=== PATIENT | male | born 1975 | race Caucasian/White ===

== ENCOUNTER 2023-08-11 13:41 | Outpatient (CLI) | payer BC, SELFPAY | END 2023-08-11 13:42 | disposition home or self-care (01) | PROVIDERS: PCP Family Medicine; Visit Provider Registered Nurse | DX: R07.9 Chest pain, unspecified (principal) | CPT/HCPCS: 83690; 84484 ==

== ENCOUNTER 2024-03-15 13:21 | Outpatient (CLI) | payer BC, SELFPAY | END 2024-03-15 13:22 | disposition home or self-care (01) | PROVIDERS: PCP Family Medicine; Visit Provider Family Medicine | DX: L97.321 Non-pressure chronic ulcer of left ankle limited to breakdown of skin (principal); B95.61 Methicillin susceptible Staphylococcus aureus infection as the cause of diseases classified elsewhere | CPT/HCPCS: 82947; 83036; 87070; 87186 ==

== ENCOUNTER 2024-04-02 09:58 | Outpatient (CLI) | payer BC, SELFPAY | END 2024-04-02 09:59 | disposition home or self-care (01) | LOC: WOUND 09:58 | PROVIDERS: PCP Family Medicine; Visit Provider Nurse Practitioner Family | DX: L23.9 Allergic contact dermatitis, unspecified cause (principal); I83.12 Varicose veins of left lower extremity with inflammation | CPT/HCPCS: G0463 ==

== ENCOUNTER 2024-04-15 14:41 | Outpatient (CLI) | payer BC, SELFPAY | END 2024-04-15 14:42 | disposition home or self-care (01) | LOC: WOUND 14:41 | PROVIDERS: PCP Family Medicine; Visit Provider Family Medicine | DX: I83.12 Varicose veins of left lower extremity with inflammation (principal); L23.9 Allergic contact dermatitis, unspecified cause | CPT/HCPCS: G0463 ==

== ENCOUNTER 2024-07-14 09:02 | Outpatient (CLI) | payer BC, SELFPAY | END 2024-07-14 09:03 | disposition home or self-care (01) | PROVIDERS: PCP Internal Medicine; Visit Provider Nurse Practitioner Family | DX: L23.9 Allergic contact dermatitis, unspecified cause (principal); L40.8 Other psoriasis; I83.12 Varicose veins of left lower extremity with inflammation | CPT/HCPCS: G0463 ==

== ENCOUNTER 2024-07-21 09:54 | Outpatient (CLI) | payer OTHER, SELFPAY ==
--- NOTE | 2024-07-21 10:15 | CRLHL7_ITS ---
For Patients: As a result of the 21st Century Cures Act, medical imaging exams and procedure reports are released immediately into your electronic medical record. You may view this report before your referring provider. If you have questions, please contact your health care provider. CLINICAL INDICATION: Right shoulder pain. COMPARISON IMAGING STUDIES: Radiographs from 04/27/2024. TECHNICAL: Non-contrast MRI of the right shoulder. Axial, sagittal oblique and coronal oblique T1, PD, PD FS, T2 and T2 FS images. 1.5 Billie MR scanner. FINDINGS: GLENOHUMERAL JOINT: Effusion: There is mild synovitis within the subscapular recess. Only a small amount of joint fluid is present. Humeral Head Articular Cartilage: Maintained. Glenoid Articular Cartilage: Maintained. Alignment: Maintained. Capsule: No generalized capsular edema. OSSEOUS STRUCTURES: Small area of reactive bone marrow edema involves the greater tuberosity anteriorly. There is no acute fracture or avascular necrosis. CORACOACROMIAL ARCH: Acromial Morphology: Type 2 acromial morphology. There is anterior lateral downward sloping of the acromion. No os acromiale. Prominent spurring of the anterolateral acromion. Lateral acromial thickness is 7 mm. Acromiohumeral Interval: At its narrowest, the interval measures 5 mm. Mildly prominent coracoacromial ligament. Coracohumeral Interval: At its narrowest, the coracohumeral interval measures 8 mm. Coracoid index is 17 mm. ACROMIOCLAVICULAR JOINT REGION: AC joint degenerative arthrosis. Coracoclavicular ligament intact. BURSAE: Moderate subacromial-subdeltoid bursal fluid. ROTATOR CUFF TENDONS AND MUSCLES AND DELTOID: Supraspinatus and Infraspinatus: There is full-thickness tearing of the anterior distal supraspinatus tendon measuring approximately 12 millimeters anterior/posterior by 7 millimeters medial/lateral extent. Tear is well seen on coronal oblique T2 image number 11 of series 6. There is additional partial-thickness tendon tearing which extends both medial and posterior to the area of full-thickness tearing. Underlying supraspinatus tendinosis. No supraspinatus muscle atrophy. Mild distal infraspinatus tendinosis. No high-grade infraspinatus tendon tear or infraspinatus muscle atrophy. Teres Minor: Distal teres minor tendon is intact. Teres minor muscle mass maintained. Subscapularis: Distal subscapularis tendon intact. No muscle atrophy. Deltoid: No muscle atrophy or edema. BICEPS TENDON, LONG HEAD: Mild tendinosis of the proximal most long head of the biceps tendon. No subluxation or dislocation of tendon from bicipital groove. GLENOID LABRUM: Degenerative fraying of the superior labrum. OTHER FINDINGS: There is no abnormality within the suprascapular or spinoglenoid notches nor within the quadrilateral space. No axillary adenopathy or mass. IMPRESSION: 1. Approximately 12 mm area of full-thickness supraspinatus tendon tearing anteriorly. Additional partial-thickness tendon tearing is present adjacent to the full-thickness tear. Underlying tendinosis. No muscle atrophy. 2. Mild infraspinatus tendinosis. No high-grade infraspinatus tendon tear. 3. Anterior lateral downward sloping of the acromion. Prominent subacromial spur. Narrowed acromiohumeral interval. 4. Moderate subacromial-subdeltoid bursal fluid. 5. AC joint degenerative arthrosis. 6. Degenerative fraying of the superior labrum with adjacent tendinosis of the proximal most long head of the biceps tendon. Dictated by Mark Reid MD @ 07/21/2024 1:28:19 PM (Electronically Signed)
== END 2024-07-21 09:55 | disposition home or self-care (01) ==
LOC: MRI 09:54
PROVIDERS: PCP Internal Medicine; Visit Provider Internal Medicine
DX: M25.511 Pain in right shoulder (principal); M75.101 Unspecified rotator cuff tear or rupture of right shoulder, not specified as traumatic; M75.51 Bursitis of right shoulder; M19.011 Primary osteoarthritis, right shoulder; S49.90XA Unspecified injury of shoulder and upper arm, unspecified arm, initial encounter
CPT/HCPCS: 73221

== ENCOUNTER 2024-07-28 10:13 | Outpatient (CLI) | payer BC, SELFPAY | END 2024-07-28 10:14 | disposition home or self-care (01) | LOC: WOUND 10:13 | PROVIDERS: PCP Internal Medicine; Visit Provider Nurse Practitioner Family | DX: L40.8 Other psoriasis (principal); L23.9 Allergic contact dermatitis, unspecified cause | CPT/HCPCS: G0463 ==

== ENCOUNTER 2024-11-01 07:30 | Day surgery (SDC) | payer OTHER, BC, SELFPAY ==
[2024-11-01] VITALS (15 sets, daily range): BP systolic 105–175; BP diastolic 64–101; PULSE 77–95; RESP 14–16; TEMP 36.4–36.6; O2SAT 92–98; BMI 40.3
[2024-11-01] MEDS: LACTATED RINGERS 1000 ML 1,000 ML 100 ML IV ×2 (07:35→10:35)
[2024-11-01] MEDS: SODIUM CHLORIDE 0.9 % (FLUSH) 10 ML SYRINGE IVF (08:05)
[2024-11-01] MEDS: EPINEPHrine 1 MG in SODIUM CHLORIDE IRRIG SOLUTION 3,000 ML 9003 MG IRRIGATION ×4 (08:23→10:48)
--- NOTE | 2024-11-01 08:40 | SUR.PREOP ---
TIME?OUT:?right shoulder PT/RN/MDA?VERIFICATION?OF?SURGICAL?SITE,?PROCEDURE,?AND?CONSENT OBTAINED?PRIOR?TO?INVASIVE?PROCEDURE.
[2024-11-01] MEDS: fentaNYL 100 MCG/2 ML inj IVP (08:45)
[2024-11-01] MEDS: MIDAZOLAM HCL 1 MG/ML inj IVP (08:45)
[2024-11-01] MEDS: CEFAZOLIN 2 GM in 0.9 % SODIUM CHLORIDE Mini-bag 100 ML IVPB (09:20)
--- NOTE | 2024-11-01 09:29 | W.PM.H&PU ---
History & Physical Update History & Physical Update H&P Reviewed and patient assessed: No changes noted
--- NOTE | 2024-11-01 11:07 | PM.ORPRC ---
Procedure Note Date of procedure: 11/01/24 Procedure: PREOPERATIVE DIAGNOSES: 1. Right shoulder rotator cuff tear. 2. Right shoulder AC joint arthrosis 3. Right shoulder anterior labral tearing 4. Right shoulder subacromial impingement syndrome. POSTOPERATIVE DIAGNOSES: 1. Right shoulder rotator cuff tear - full-thickness supraspinatus 2. Right shoulder AC joint arthrosis 3. Right shoulder anterior labral tearing 4. Right shoulder subacromial impingement syndrome. NAME OF OPERATION: 1. Right shoulder arthroscopic rotator cuff repair - full-thickness supraspinatus 2. Right shoulder arthroscopic distal clavicle excision 3. Right shoulder arthroscopic limited glenohumeral debridement 4. Right shoulder arthroscopic bursectomy, subacromial decompression/partial acromioplasty. SURGEON: Francisco Steinberg MD ROLL UP HELPER: Kevyn Medina PA-C. Of note, a skilled certified first assistant was critical for this case to aide in patient positioning, suture manipulation, arm positioning, instrument positioning, and closure. ANESTHESIA: General plus preoperative supraclavicular block. EBL: 25 IMPLANTS: Arthrex 4.75 mm BioComposite SwiveLock suture anchor (x2); Arthrex 2.6 mm standard FiberTak RC (x2) COMPLICATIONS: None evident INDICATIONS: The patient is a pleasant, 49-year-old male who has experienced right shoulder pain that has been increasing in recent time. Physical exam and imaging were consistent with a rotator cuff tear. Given their findings, as well as the weakness and pain, and inadequate response to nonoperative management, recommendation was made for surgery. FINDINGS: Exam under anesthesia revealed stable shoulder with excellent range of motion. The diagnostic arthroscopy revealed healthy chondral surfaces of the glenohumeral joint. The Subscapularis tendon was intact and with a healthy attachment. The long head of the biceps tendon was intact. The superior rotator cuff tendon was found to be torn full-thickness through the anterior/midportion of the supraspinatus. The labrum was degeneratively torn anterior and superior aspects. No loose bodies were identified within the pouch or subscapularis recess. PROCEDURE: Following a thorough discussion of risks, benefits, and alternatives, consent was obtained and the right shoulder was marked. The patient was brought to the operating room and placed supine on the operating table. Induction of anesthesia was completed after preoperative supraclavicular block was administered in preop holding. Appropriate time out was performed identifying proper patient, site, and procedure. 2 g IV Ancef was administered within 1 hour of incision preoperatively. The right upper extremity was prepped and draped in the appropriate sterile fashion using ChloraPrep prep. This was after the patient was positioned in the beach chair with their head in neutral alignment and all bony prominences well padded. The shoulder was insufflated with 20mL of normal saline via an 18g spinal needle from a posterior approach. An 11 blade skin incision allowed a blunt trochar to be inserted and diagnostic arthroscopy to be performed with the findings as noted above. An anterior portal was established with an outside in technique. This allowed the probe to be inserted and confirm the diagnostic arthroscopic findings. The shaver was then inserted and allowed debridement of the anterior and superior labrum. Following this, the upper border subscapularis was probed and found to be stable. Thereafter, the subacromial space was entered. Here, a complete bursectomy and partial acromioplasty/subacromial decompression was performed with a combination of radiofrequency ablator, the shaver, and a 5.5 mm bur. Additionally, distal clavicle excision was performed with the bur. 8 mm of distal clavicle was resected based on the with of our bur. Further inspection of the supraspinatus and infraspinatus rotator cuff was performed. This identified the tear as noted above. The margins of the tear were debrided, and the greater tuberosity was debrided with a combination of the apollo cautery, shaver, and bur on reverse setting. After gentle decortication, a speed bridge configuration was planned. 2 medial anchors were placed and the sutures were passed through the rotator cuff with a fiber link (2.6 mm standard FiberTak RC). It is the suture tails were passed independently and brought to 2 separate lateral row anchors with excellent footprint compression against the greater tuberosity with good security upon probing. Prior to anchor set key driver removal, the eyelet sutures were tugged on for each anchor and found that the anchor had excellent stability within the bone. The shoulder was placed through range of motion and found to be stable. The rotator cuff was re-probed and found to be stable. Instruments were removed. Excess fluid was drained, closure performed with 4-0 Monocryl and Steri-Strips. Dressings were applied. Sling was applied. The patient was awoken from anesthesia and transferred to the PACU in stable condition. A skilled certified first assistant was critical for this case to aid in patient positioning, limb positioning, skill to manipulate arthroscopic instruments and camera, suture management, patient safety, and closure. PLAN: 1. Elbow, forearm, wrist and digit range of motion as tolerated. 2. Encouraged ice. 3. Oxycodone for pain as needed. 4. Sling at all times except for ROM and showering. 5. Follow up with PA visit in 1-2 weeks for wound check. Initiate physical therapy following that visit for passive range of motion. Initiate active assisted range of motion at 6 weeks. May do pendulums now.
--- NOTE | 2024-11-01 11:13 | P.ANES_ITS ---
Anesthesia Charges Start Date/Time Anesthesia Start Date: 11/01/24 Anesthesia Start Time: 09:02 Stop Date/Time Anesthesia Stop Date: 11/01/24 Anesthesia Stop Time: 11:12 Coding CPT Codes CPT Codes: ANESTH SURGERY OF SHOULDER - 31815 ([id number]) P3 - PATIENT W/SEVERE SYS DISEASE, QK - RETORT LOADER 2-4 CNCRNT ANES PROC, QX - INLETTER SVC W/ MD MED DIRECTION
--- NOTE | 2024-11-01 11:13 | W.ANESCHARGE ---
Anesthesia Charges Start Date/Time Anesthesia Start Date: 11/01/24 Anesthesia Start Time: 09:02 Stop Date/Time Anesthesia Stop Date: 11/01/24 Anesthesia Stop Time: 11:12 Coding CPT Codes CPT Codes: ANESTH SURGERY OF SHOULDER - 55589 ([id number]) P3 - PATIENT W/SEVERE SYS DISEASE, QK - SPECIAL SERVICE OFFICER 2-4 CNCRNT ANES PROC, QX - PICKLE CUTTER SVC W/ MD MED DIRECTION
--- NOTE | 2024-11-01 11:18 | P.ANES_ITS ---
Anesthesia Charges Start Date/Time Anesthesia Start Date: 11/01/24 Anesthesia Start Time: 09:02 Stop Date/Time Anesthesia Stop Date: 11/01/24 Anesthesia Stop Time: 11:12 Coding CPT Codes CPT Codes: ANESTH SURGERY OF SHOULDER - 65450 ([id number]) QK - DISTRICT SALES MANAGER 2-4 CNCRNT ANES PROC, QX - TOOL DESIGN DRAFTER SVC W/ MD MED DIRECTION, P3 - PATIENT W/SEVERE SYS DISEASE
--- NOTE | 2024-11-01 11:18 | W.PM.NB ---
Nerve Block Nerve Block Time Seen by Provider: 08:48 Date Seen: 11/01/24 Type of block requested by surgeon for post-operative analgesia: supraclavicular Side: right Time out performed: Yes Verification of patient name: Yes Verification of date of : Yes Site marking: site marked Name of person performing procedure: Tejinder Continuous monitoring Was continuous monitoring of O2 sat, B/P, environmental monitoring specialist, recorded every 15 minutes?: Yes Procedure Checklist: sterile prep, needles and gloves Ultrasound guided. Images saved: Yes Medications given in 5ml increments after negative aspiration: Ropivicaine %: 0.5 mL: 20 Needle gauge: 22 Precedex (mcg): 25 Patient tolerated procedure well: Yes Block Charges Block Charge (with Pro Fee): Brachial Plexus Use of Ultrasound Machine for Block: Yes- US Guidance/pain block
--- NOTE | 2024-11-01 11:18 | W.ANESCHARGE ---
Anesthesia Charges Start Date/Time Anesthesia Start Date: 11/01/24 Anesthesia Start Time: 09:02 Stop Date/Time Anesthesia Stop Date: 11/01/24 Anesthesia Stop Time: 11:12 Coding CPT Codes CPT Codes: ANESTH SURGERY OF SHOULDER - 65809 ([id number]) QK - MEDICAL RECORDS DIRECTOR 2-4 CNCRNT ANES PROC, QX - RIBBON BLOCKMAKER SVC W/ MD MED DIRECTION, P3 - PATIENT W/SEVERE SYS DISEASE
[2024-11-01] MEDS: hydrOXYzine pamoate 25 MG CAPSULE PO (11:21)
[2024-11-01] MEDS: fentaNYL 100 MCG/2 ML inj 50 MCG IVP (11:26)
[2024-11-01] MEDS: PROCHLORPERAZINE 5 MG/ML VIAL IVP (11:43)
[2024-11-01] MEDS: OXYCODONE 5 MG TABLET PO (11:51)
== END 2024-11-01 12:48 | disposition home or self-care (01) ==
LOC: OR 07:31
PROVIDERS: PCP Internal Medicine; Visit Provider Orthopaedic Surgery Sports Medicine
PROC: (CPT 29805; principal; 2024-11-01 09:15)
DX: M75.121 Complete rotator cuff tear or rupture of right shoulder, not specified as traumatic (principal); M19.011 Primary osteoarthritis, right shoulder; S43.431A Superior glenoid labrum lesion of right shoulder, initial encounter; M75.41 Impingement syndrome of right shoulder; G89.18 Other acute postprocedural pain
CPT/HCPCS: 29827; 29826; 29824; 29822; 01630; 64415; 76942; A9270; C1713; J0171; J0330; J0690; J0780; J1100; J2250; J2371; J2405; J2704; J2795; J3010; J3490; J7120; L3670